=== PATIENT | female | born 1965 | race Caucasian/White ===

== ENCOUNTER 2016-12-18 09:35 | Emergency (ER) | payer SELFPAY ==
[~2016-12-18] VITALS: Ht 160 cm; Wt 65.8 kg
[~2016-12-18 09:35] MED LIST: ATENOLOL25 MG PO; CALCIUM + D3 E1 EACH PO; CLINDAMYCIN HC300 MG PO; CYCLOBENZAPRINE10 MG PO; DIAZEPAM5 MG PO; FISH OIL + D31 EACH PO; PEPCID20 MG PO; PREDNISONE50 MG PO; TRAMADOL HCL50 MG PO; ULTRAM50 MG PO; VITAMIN E100 UNI1 PO; ZOFRAN ODT4 MG PO
--- OUTSIDE RECORDS SUMMARY | 2016-12-18 09:51 | XMS ---
Demographics + + + | Address | [address] | | | [place] [address] | + + + | Preferred Language | Unknown | + + + | Marital Status | Unknown | + + + | Sabianism Affiliation | Unknown | + + + | Race | Unknown | + + + | Ethnic Group | Unknown | + + + Author + + + | Author | [facility] | + + + | Organization | [facility] | + + + | Address | [address] | | | [place] [address] | + + + | Phone | | + + + Care Team Providers + + + + | Care Fire Alarm Dispatcher Name | Role | Phone | + + + + Unavailable | Unavailable | + + + + PROBLEMS +---------+ + + +--------+ + + | Type | Condition | ICD9-CM | [id number] | Onset | Condition | SNOMED | | | | Code | Code | Dates | Status | Code | +---------+ + + +--------+ + + | Problem | Hypertensi | 401.9 | | | Active | 17245912 | | | on | | | | | | +---------+ + + +--------+ + + | Problem | Sciatica | M54.32 | | | Active | 18834858 | | | of left | | | | | | | | side | | | | | | +---------+ + + +--------+ + + | Problem | History of | Z86.79 | | | Active | [id number] | | | irregular | | | | | | | | heartbeat | | | | | | +---------+ + + +--------+ + + | Problem | Alcohol | F10.10 | | | Active | 82617338 | | | abuse | | | | | | +---------+ + + +--------+ + + | Problem | Degenerati | M15.9 | | | Active | 177364580 | | | ve joint | | | | | | | | disease | | | | | | | | involving | | | | | | | | multiple | | | | | | | | joints | | | | | | +---------+ + + +--------+ + + | Problem | Irregular | I49.9 | | | Active | 099862498 | | | cardiac | | | | | | | | rhythm | | | | | | +---------+ + + +--------+ + + | Problem | Unspecifie | | S93.602D | | Active | | | | d sprain | | | | | | | | of left | | | | | | | | foot, | | | | | | | | subsequent | | | | | | | | encounter | | | | | | +---------+ + + +--------+ + + | Problem | Primary | M15.0 | | | Active | 883767249 | | | osteoarthr | | | | | | | | itis | | | | | | | | involving | | | | | | | | multiple | | | | | | | | joints | | | | | | +---------+ + + +--------+ + + | Problem | Anxiety | | F41.9 | | Active | 53605021 | +---------+ + + +--------+ + + | Problem | Sciatica, | | M54.31 | | Active | 06308894 | | | right side | | | | | | +---------+ + + +--------+ + + ALLERGIES Unknown Allergies SOCIAL HISTORY No smoking Hx information available PLAN OF CARE VITAL SIGNS MEDICATIONS Unknown Medications RESULTS No Results PROCEDURES No Known procedures IMMUNIZATIONS No Known Immunizations"
--- OUTSIDE RECORDS SUMMARY | 2016-12-18 09:51 | XMS ---
Demographics + + + | Address | [address] | | | [place] [address] | + + + | Preferred Language | Unknown | + + + | Marital Status | Unknown | + + + | Buddhist Affiliation | Unknown | + + + | Race | Unknown | + + + | Ethnic Group | Unknown | + + + Author + + + | Author | [facility] | + + + | Organization | [facility] | + + + | Address | [address] | | | [place] [address] | + + + | Phone | | + + + Care Team Providers + + + + | Care Ornamental Plaster Sticker Name | Role | Phone | + + + + Unavailable | Unavailable | + + + + PROBLEMS +---------+ + + +--------+ + + | Type | Condition | ICD9-CM | [id number] | Onset | Condition | SNOMED | | | | Code | Code | Dates | Status | Code | +---------+ + + +--------+ + + | Problem | Primary | M15.0 | | | Active | [id number] | | | osteoarthr | | | | | | | | itis | | | | | | | | involving | | | | | | | | multiple | | | | | | | | joints | | | | | | +---------+ + + +--------+ + + | Problem | Sciatica, | | M54.31 | | Active | 63693124 | | | right side | | [...] | F10.10 | | | Active | 87534031 | | | abuse | | | | | | +---------+ + + +--------+ + + | Problem | Hypertensi | 401.9 | | | Active | 84311166 | | | on | | | | | | +---------+ + + +--------+ + + | Problem | History of | Z86.79 | | | Active | 970395437 | | | irregular | | | | | | | | heartbeat | | | | | | +---------+ + + +--------+ + + | Problem | Sciatica | M54.32 | | | Active | 64912589 | | | of left | | | | | | | | side | | | | | | +---------+ + + +--------+ + + | Problem | Injury of | S13.4XXA | | | Active | 989716271 | | | neck, | | | | | | | | whiplash | | | | | | +---------+ + + +--------+ + + | Problem | Retrolisth | M43.10 | | | Active | 056635713 | | | esis | | | | | | +---------+ + + +--------+ + + | Problem | Irregular | I49.9 | | | Active | 918653306 | | | cardiac | | | | | | | | rhythm | | | | | | +---------+ + + +--------+ + + | Problem | Anxiety | | F41.9 | | Active | 41277416 | +---------+ + + +--------+ + + | Problem | Right | | M25.511 | | Active | 784167812 | | | shoulder | | | | | | | | pain | | | | | | +---------+ + + +--------+ + + | Problem | Degenerati | M15.9 | | | Active | 047502326 | | | ve joint | | | | | | | | disease | | | | | | | | involving | | | | | | | | multiple | | | | | | | | joints | | | | | | +---------+ + + +--------+ + + ALLERGIES + + + + +--------+ | Substance | Reaction | Event Type | Date | Status | + + + + +--------+ | Tylenol | Unknown | Drug Allergy | Oct, | Active | + + + + +--------+ | Cipro | Unknown | Drug Allergy | Oct, | Active | + + + + +--------+ SOCIAL HISTORY No smoking Hx information available PLAN OF CARE + +---------+ | Activity | Details | + +---------+ +---+ | | +---+ + + + | Follow Up | prn Reason:null | + + + VITAL SIGNS + + + + | Height | 63 in | 2016-10-17 | + + + + | Weight | 159.8 lbs | 2016-10-17 | + + + + | BMI | 28.30 kg/m2 | 2016-10-17 | + + + + | Temperature | 98.2 degrees Fahrenheit | 2016-10-17 | + + + + | Heart Rate | 92 /min | 2016-10-17 | + + + + | Blood pressure systolic | 129 mm Hg | 2016-10-17 | + + + + | Blood pressure diastolic | 77 mm Hg | 2016-10-17 | + + + + MEDICATIONS + + + + + + + +--------+ | Medicati | Instruct | Dosage | Frequenc | Start | End Date | Duration | Status | | on | ions | | y | Date | | | | + + + + + + + +--------+ | Toradol | orally | as | | 20 Taco, | 11 Taco, | 5 day(s) | Active | | 10 mg | tid prn | directed | | 2015 | 2016 | | | + + + + + + + +--------+ | Vitamin | Orally | 1 tablet | 24h | | | 30 | Active | | D 1000 | Once a | | | | | day(s) | | | UNIT | day | | | | | | | + + + + + + + +--------+ RESULTS No Results PROCEDURES + + + + + | Procedure | Date Ordered | Related Diagnosis | Body Site | + + + + + | INJ KETOROLAC | October 17, 2016 | | | | TROMETHAMINE 15 MG | | | | + + + + + | INJECTION | October 17, 2016 | | | | INTRAMUSCULAR OR | | | | | SUBCUTANEOUS | | | | + + + + + | Est Level IV | October 17, 2016 | | | | Extended | | | | + + + + + IMMUNIZATIONS + + + + + | Vaccine | Route | Administration Date | Status | + + + + + | Ketorolac 30mg | IM Intramuscular | October 17, 2016 | Administered | + + + + +"
--- OUTSIDE RECORDS SUMMARY | 2016-12-18 09:51 | XMS ---
Demographics + + + | Address | [address] | | | [place] [address] | + + + | Preferred Language | Unknown | + + + | Marital Status | Unknown | + + + | Restoration Affiliation | Unknown | + + + | Race | Unknown | + + + | Ethnic Group | Unknown | + + + Author + + + | Author | [facility] | + + + | Organization | [facility] | + + + | Address | [address] | | | [place] [address] | + + + | Phone | | + + + Care Team Providers + + + + | Care Tile Machine Operator Name | Role | Phone | + + + + Unavailable | Unavailable | + + + + PROBLEMS +---------+ + + +--------+ + + | Type | Condition | ICD9-CM | [id number] | Onset | Condition | SNOMED | | | | Code | Code | Dates | Status | Code | +---------+ + + +--------+ + + | Problem | Hypertensi | 401.9 | | | Active | 40729948 | | | on | | | | | | +---------+ + + +--------+ + + | Problem | Sciatica | M54.32 | | | Active | 82207793 | | | of left | | | | | | | | side | | | | | | +---------+ + + +--------+ + + | Problem | History of | Z86.79 | | | Active | 019851629 | | | irregular | | | | | | | | heartbeat | | | | | | +---------+ + + +--------+ + + | Problem | Alcohol | F10.10 | | | Active | 65017263 | | | abuse | | | | | | +---------+ + + +--------+ + + | Problem | Degenerati | M15.9 | | | Active | 358184242 | | | ve joint | | [...] | I49.9 | | | Active | 593256081 | | | cardiac | | | [...] | M15.0 | | | Active | 157472389 | | | osteoarthr | | | | | | | | itis | | | | | | | | involving | | | | | | | | multiple | | | | | | | | joints | | | | | | +---------+ + + +--------+ + + | Problem | Anxiety | | F41.9 | | Active | 02971193 | +---------+ + + +--------+ + + | Problem | Sciatica, | | M54.31 | | Active | 37154043 | | | right side | | [...] + | Height | 63 in | 2016-10-14 | + + + + | Weight | 160.6 lbs | 2016-10-14 | + + + + | BMI | 28.45 kg/m2 | 2016-10-14 | + + + + | Temperature | 98.3 degrees Fahrenheit | 2016-10-14 | + + + + | Heart Rate | 81 /min | 2016-10-14 | + + + + | Blood pressure systolic | 127 mm Hg | 2016-10-14 | + + + + | Blood pressure diastolic | 74 mm Hg | 2016-10-14 | + + + + MEDICATIONS + + + + +--------+ + +--------+ | Medicati | Instruct | Dosage | Frequenc | Start | End Date | Duration | Status | | on | ions | | y | Date | | | | + + + + +--------+ + +--------+ | Vitamin | Orally | 1 tablet | 24h | | | 30 | Active | | D 1000 | Once a | | | | | day(s) | | | UNIT | day | | | | | | | + + + + +--------+ + +--------+ RESULTS No Results PROCEDURES + + + + + | Procedure | Date Ordered | Related Diagnosis | Body Site | + + + + + | Est Level III | October 14, 2016 | | | | Intermediate | | | | + + + + + | DSCHRG MED/CURRENT | October 14, 2016 | | | | MED MERGE | | | | + + + + + | DOC MEDS VERIFIED | October 14, 2016 | | | | W/PT OR RE | | | | + + + + + IMMUNIZATIONS No Known Immunizations"
== END 2016-12-18 11:19 | disposition home or self-care (01) ==
LOC: ED 09:35
DX: M79.662 Pain in left lower leg (principal); Z90.710 Acquired absence of both cervix and uterus; Z85.3 Personal history of malignant neoplasm of breast; F17.200 Nicotine dependence, unspecified, uncomplicated; Z90.49 Acquired absence of other specified parts of digestive tract; Z88.5 Allergy status to narcotic agent; Z88.2 Allergy status to sulfonamides; Z88.8 Allergy status to other drugs, medicaments and biological substances; Z88.1 Allergy status to other antibiotic agents
CPT/HCPCS: 85025; 85610; 93971; 99284

== ENCOUNTER 2017-04-15 00:46 | Emergency (ER) | payer SELFPAY ==
[~2017-04-15] VITALS: Ht 160 cm; Wt 65.8 kg
== END 2017-04-15 02:38 | disposition home or self-care (01) ==
LOC: ED 00:46
DX: S06.0X9A Concussion with loss of consciousness of unspecified duration, initial encounter (principal); F10.129 Alcohol abuse with intoxication, unspecified; Z88.6 Allergy status to analgesic agent; Z88.1 Allergy status to other antibiotic agents; Z88.2 Allergy status to sulfonamides; Z88.5 Allergy status to narcotic agent; Z88.8 Allergy status to other drugs, medicaments and biological substances; Z90.710 Acquired absence of both cervix and uterus; Z90.49 Acquired absence of other specified parts of digestive tract; F17.200 Nicotine dependence, unspecified, uncomplicated; Z85.3 Personal history of malignant neoplasm of breast; W07.XXXA Fall from chair, initial encounter
CPT/HCPCS: 70450; 72125; 99284

== ENCOUNTER → 2017-09-09 | Emergency (ER) | payer OTHER ==
[~2017-09-09] VITALS: Ht 160 cm; Wt 65.8 kg
[~2017-09-09] MED LIST changes: +ADVIL LIQUI-GE200 MG PO; +NAPROXEN500 MG PO
--- OUTSIDE RECORDS SUMMARY | ~2017-09-09 | XMS ---
Demographics + + + | Address | [address] | | | [place] [address] | + + + | Preferred Language | Unknown | + + + | Marital Status | Unknown | + + + | Religion Affiliation | Unknown | + + + | Race | Unknown | + + + | Ethnic Group | Unknown | + + + Author + + + | Author | [facility] | + + + | Organization | [facility] | + + + | Address | [address] | | | [place] [address] | + + + | Phone | | + + + Care Team Providers + + + + | Care Aviation Technical Systems Specialist Name | Role | Phone | + + + + Unavailable | Unavailable | + + + + PROBLEMS +---------+ + + +--------+ + + | Type | Condition | ICD9-CM | [id number] | Onset | Condition | SNOMED | | | | Code | Code | Dates | Status | Code | +---------+ + + +--------+ + + | Problem | Primary | M15.0 | | | Active | [id number] | | | osteoarthr | | | | | | | | itis | | | | | | | | involving | | | | | | | | multiple | | | | | | | | joints | | | | | | +---------+ + + +--------+ + + | Problem | Sciatica, | | M54.31 | | Active | 86106029 | | | right side | | [...] | F10.10 | | | Active | 50557687 | | | abuse | | | | | | +---------+ + + +--------+ + + | Problem | Hypertensi | 401.9 | | | Active | 05463247 | | | on | | | | | | +---------+ + + +--------+ + + | Problem | History of | Z86.79 | | | Active | 602984774 | | | irregular | | | | | | | | heartbeat | | | | | | +---------+ + + +--------+ + + | Problem | Sciatica | M54.32 | | | Active | 97530395 | | | of left | | | | | | | | side | | | | | | +---------+ + + +--------+ + + | Problem | Injury of | S13.4XXA | | | Active | 633867081 | | | neck, | | | | | | | | whiplash | | | | | | +---------+ + + +--------+ + + | Problem | Retrolisth | M43.10 | | | Active | 540994913 | | | esis | | | | | | +---------+ + + +--------+ + + | Problem | Irregular | I49.9 | | | Active | 866534152 | | | cardiac | | | | | | | | rhythm | | | | | | +---------+ + + +--------+ + + | Problem | Anxiety | | F41.9 | | Active | 79577172 | +---------+ + + +--------+ + + | Problem | Right | | M25.511 | | Active | 214505865 | | | shoulder | | | | | | | | pain | | | | | | +---------+ + + +--------+ + + | Problem | Degenerati | M15.9 | | | Active | 538889888 | | | ve joint | | [...]
--- OUTSIDE RECORDS SUMMARY | ~2017-09-09 | XMS | Clinical Summary ---
Demographics + + + | Address | [address] | | | [place] [address] | + + + | Home Phone | | + + + | Preferred Language | Unknown | + + + | Marital Status | | + + + | Mormonism Affiliation | Unknown | + + + | Race | Unknown | + + + | Ethnic Group | Unknown | + + + Author + + + | Author | [facility] | | | and [place] | + + + | Organization | [facility] | | | and [facility] | + + + | Address | Unknown | + + + | Phone | Unavailable | + + + Support + + + + + | Name | Relationship | Address | Phone | + + + + + | Audie Dang | ECON | [address] | | | | | [place] | | | | | [address] | | + + + + + | Keisha Leonard | ECON | [address] | | | | | [place] | | | | | [address] | | + + + + + Care Team Providers + +------+ + | Care Site Monitor Name | Role | Phone | + +------+ + | No, Unknownpcp | PP | Unavailable | + +------+ + Allergies Not on File Current Medications Not on file Active Problems Not on file Social History + +-------+ +--------+------+ | Tobacco Use | Types | Packs/Day | Years | Date | | | | | Used | | + +-------+ +--------+------+ | Never Assessed | | | | | + +-------+ +--------+------+ + + + | Sex Assigned at | Date Recorded | | | | + + + | Not on file | | + + + Plan of Treatment + + + + + | Health Maintenance | Due Date | Last Done | Comments | + + + + + | Vaccine: | | | | | Dtap/Tdap/Td (1 - | 6 | | | | Tdap) | | | | + + + + + | CERVICAL CANCER | | | | | SCREENING (PAP EVERY | 8 | | | | 3 YEARS 21-64 ) | | | | + + + + + | BREAST CANCER | | | | | SCREENING (MAMM Q2 | 7 | | | | YEARS 50-74) | | | | + + + + + | COLON CANCER | | | | | SCREENING | 7 | | | | (COLONOSCOPY EVERY | | | | | 10 YEARS 50-75) | | | | + + + + + | Vaccine: Influenza | | | | | (Season Ended) | 8 | | | + + + + + Results Not on filefrom Last 3 Months"
--- OUTSIDE RECORDS SUMMARY | ~2017-09-09 | XMS ---
Demographics + + + | Address | [address] | | | [place] [address] | + + + | Preferred Language | Unknown | + + + | Marital Status | Unknown | + + + | Uatsdin Affiliation | Unknown | + + + | Race | Unknown | + + + | Ethnic Group | Unknown | + + + Author + + + | Author | [facility] | + + + | Organization | [facility] | + + + | Address | [address] | | | [place] [address] | + + + | Phone | | + + + Care Team Providers + + + + | Care Micro Computer Specialist Name | Role | Phone | + + + + Unavailable | Unavailable | + + + + PROBLEMS +---------+ + + +--------+ + + | Type | Condition | ICD9-CM | [id number] | Onset | Condition | SNOMED | | | | Code | Code | Dates | Status | Code | +---------+ + + +--------+ + + | Problem | History of | Z86.79 | | | Active | 156360855 | | | irregular | | | | | | | | heartbeat | | | | | | +---------+ + + +--------+ + + | Problem | Sciatica, | | M54.31 | | Active | 41448907 | | | right side | | | | | | +---------+ + + +--------+ + + | Problem | Primary | M15.0 | | | Active | 420355446 | | | osteoarthr | | | | | | | | itis | | | | | | | | involving | | | | | | | | multiple | | | | | | | | joints | | | | | | +---------+ + + +--------+ + + | Problem | Hypertensi | | I10 | | Active | 08830953 | | | on | | | | | | +---------+ + + +--------+ + + | Problem | Alcohol | F10.10 | | | Active | 05315780 | | | abuse | | | | | | +---------+ + + +--------+ + + | Problem | PVD | I73.9 | | | Active | 156813253 | | | (periphera | | | | | | | | l vascular | | | | | | | | disease) | | | | | | +---------+ + + +--------+ + + | 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 | | | Active | 08884194 | | | vein of | | | | | | | | leg | | | | | | +---------+ + + +--------+ + + | Problem | Irregular | I49.9 | | | Active | 615023203 | | | cardiac | | | | | | | | rhythm | | | | | | +---------+ + + +--------+ + + | Problem | Anxiety | | F41.9 | | Active | 63740420 | +---------+ + + +--------+ + + | Problem | Shoulder | | M25.519 | | Active | 22602871 | | | pain | | | | | | +---------+ + + +--------+ + + | Problem | Degenerati | M15.9 | | | Active | 370987445 | | | ve joint | | [...] Tylenol | Unknown | Drug Allergy | Dec, | Active | + + + + +--------+ | Cipro | Unknown | Drug Allergy | Dec, | Active | + + + + +--------+ SOCIAL HISTORY No smoking Hx information available PLAN OF CARE + +---------+ | Activity | Details | + +---------+ +---+ | | +---+ + + + | Follow Up | 4 Weeks, prn Reason:null | + + + VITAL SIGNS + + + + | Height | 63 in | 2017-01-03 | + + + + | Weight | 161.4 lbs | 2017-01-03 | + + + + | BMI | 28.59 kg/m2 | 2017-01-03 | + + + + | Temperature | 98.7 degrees Fahrenheit | 2017-01-03 | + + + + | Heart Rate | 93 /min | 2017-01-03 | + + + + | Blood pressure systolic | 145 mm Hg | 2017-01-03 | + + + + | Blood pressure diastolic | 99 mm Hg | 2017-01-03 | + + + + MEDICATIONS + [...] + + + + + +--------+ | BuSpar 5 | Orally | 1 tablet | 8h | 23 Dec, | | 30 | Active | | MG | Three | | | 2017 | | day(s) | | | | times a | | | | | | | | | day | | | | | | | + + + + + + + +--------+ | Vitamin | | | | | | | Active | | E | | | | | | | | + + + + + + + +--------+ | Calcium | | | | | | | Active | + + + + + + + +--------+ | Advil | | | | | | | Active | + + + + + + + +--------+ | Toradol | orally | as | | Dec, | 28 Dec, | 5 day(s) | Active | | 10 mg | p.r.n. | directed | | 2016 | 2016 | | | + + + + + + + +--------+ RESULTS No Results PROCEDURES + + + + + | Procedure | Date Ordered | Related Diagnosis | Body Site | + + + + + | Est Level III | Jan 03, 2017 | | | | Intermediate | | | | + + + + + IMMUNIZATIONS No Known Immunizations"
--- OUTSIDE RECORDS SUMMARY | ~2017-09-09 | XMS | Clinical Summary ---
Demographics + + + | Address | [address] | | | [place] [address] | + + + | Home Phone | | + + + | Preferred Language | Unknown | + + + | Marital Status | | + + + | Orthodoxy Affiliation | Unknown | + + + | Race | Unknown | + + + | Ethnic Group | Unknown | + + + Author + + + | Author | [facility] | | | and [place] | + + + | Organization | [facility] | | | and [place] | + + + | Address | Unknown | + + + | Phone | Unavailable | + + + Support + + + + + | Name | Relationship | Address | Phone | + + + + + | Audie Dang | ECON | [address] | | | | | [place] | | | | | [address] | | + + + + + | Keisha Leonard | ECON | [address] | | | | | [place] | | | | | [address] | | + + + + + Care Team Providers + +------+ + | Care Audio Visual Design Engineer Name | Role | Phone | + [...]
== END | disposition home or self-care (01) ==
LOC: ED 22:41
DX: M79.605 Pain in left leg (principal); M79.604 Pain in right leg; F17.200 Nicotine dependence, unspecified, uncomplicated; Z88.6 Allergy status to analgesic agent; Z88.2 Allergy status to sulfonamides; Z88.1 Allergy status to other antibiotic agents; Z88.5 Allergy status to narcotic agent; Z88.8 Allergy status to other drugs, medicaments and biological substances
CPT/HCPCS: 99283

== ENCOUNTER 2018-01-13 20:55 | Emergency (ER) | payer OTHER ==
[~2018-01-13] VITALS: Ht 160 cm; Wt 65.8 kg
== END 2018-01-13 22:24 | disposition home or self-care (01) ==
LOC: ED 20:55
PROC: 0T9B70Z Drainage of Bladder with Drainage Device, Via Natural or Artificial Opening (ICD-10-PCS; principal; 2018-01-13)
DX: R55 Syncope and collapse (principal); F17.200 Nicotine dependence, unspecified, uncomplicated; Z88.6 Allergy status to analgesic agent; Z88.2 Allergy status to sulfonamides; Z88.8 Allergy status to other drugs, medicaments and biological substances
CPT/HCPCS: 51701; 80053; 80176; 81001; 84443; 85025; 99285; G0480; J7030

== ENCOUNTER 2019-07-05 00:11 | Emergency (ER) | payer OTHER ==
[~2019-07-05] VITALS: Ht 160 cm; Wt 65.8 kg
--- OUTSIDE RECORDS SUMMARY | 2019-07-05 00:14 | XMS ---
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 Niya has no Care Guidelines for this patient. Care History Medical/Surgical 09/11/2017 [facility] contacted patient about insurance coverage. Patient stated she would work with [employer] in regards to health coverage and would be in contact with her [employer]. - [facility] expressed the importance of ED utilization verses being seen by the PCP. Care Recommendation: Patient requires education on the scope and purpose of the ED as an acute care provider not a Primary Care Provider and should not be utilized for chronic conditions. If patient returns to ED please contact Community Health WorkerYahaira at [phone]. These are guidelines and the provider should exercise clinical judgment when providing care. E.D. VISIT COUNT (12 MO.) 1 [facility] TOTAL 1 NOTE: Visits indicate total known visits. ED/UCC VISIT TRACKING (12 MO.) 07/05/2019 00:12 [facility] [place] TYPE: Emergency COMPLAINT: - SYNCOPE INPATIENT VISIT TRACKING (12 MO.) No inpatient visits to display in this time frame [id number]
--- NOTE | 2019-07-05 06:13 | EKG ---
[facility] [address] [facility] [place], [place] [address] Signed Normal sinus rhythm Normal ECG No previous ECGs available Confirmed by WADE SOLARES MD ([id number]) on 07/05/2019 6:13:51 AM Electronically Signed By: WADE SOLARES MD 07/05/19612 PATIENT NAME: LENNIE ROLLINS RAGHAV Electrocardiogram DATE OF : 67 PHYSICIAN: WADE SOLARES MD REPORT #: [id number] REPORT IS CONFIDENTIAL AND NOT TO BE RELEASED WITHOUT AUTHORIZATION
== END 2019-07-05 04:26 | disposition home or self-care (01) ==
LOC: ED 00:11
DX: F10.129 Alcohol abuse with intoxication, unspecified (principal); Y90.7 Blood alcohol level of 200-239 mg/100 ml; Z85.3 Personal history of malignant neoplasm of breast; Z88.6 Allergy status to analgesic agent; Z88.1 Allergy status to other antibiotic agents; Z88.8 Allergy status to other drugs, medicaments and biological substances; Z88.2 Allergy status to sulfonamides; Z79.899 Other long term (current) drug therapy; Z88.5 Allergy status to narcotic agent
CPT/HCPCS: 51701; 70450; 72125; 80053; 81001; 84484; 84703; 85025; 85610; 85730; 93005; 93010; 99284-25; G0480; J2310

== ENCOUNTER 2021-12-27 18:15 | Emergency (ER) | payer SELFPAY ==
[~2021-12-27] VITALS: Ht 160 cm; Wt 64.9 kg
--- OUTSIDE RECORDS SUMMARY | 2021-12-27 18:18 | XMS ---
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 Niya has no Care Guidelines for this patient. Care History Medical/Surgical 07/07/2019 [facility] Patient used ED appropriately.\T\nbsp; Follow up visit scheduled for [address] Dickerson 09/11/2017 [facility] - [facility] contacted patient about insurance coverage. Patient stated she would work with [employer] in regards to health coverage and would [...] ED please contact Community Health WorkerYahaira at [phone]. These are guidelines and the provider should exercise clinical judgment when providing care. E.D. V[facility] (12 MO.) [facility] T[facility] 2 NOTE: Visits indicate total known visits. ED/UCC VISIT TRACKING (12 MO.) 12/27/2021 18:[address] [facility] [place] TYPE: Emergency COMPLAINT: - [facility] DIAGNOSES: - Anesthesia of skin - Numbness - Lf side tingling sensation INPATIENT VISIT TRACKING (12 MO.) No inpatient visits to display in this time frame [id number]
[2021-12-27] MEDS ORDERED: METFORMIN HCL500 M1 PO (20:27)
[2021-12-27] MEDS ORDERED: DICLOFENAC SODI75 MG PO (20:28)
[2021-12-27] MEDS ORDERED: LIPITOR40 MG PO (20:28)
[2021-12-27] MEDS ORDERED: AMITRIPTYLINE H50 MG PO (20:28)
[2021-12-27] MEDS ORDERED: NOVOLIN 70100 UNIT/1 SUB-Q (20:29)
[2021-12-27] MEDS ORDERED: PREDNISONE20 MG PO (23:00)
== END 2021-12-27 23:20 | disposition home or self-care (01) ==
LOC: ED 18:15
DX: M06.9 Rheumatoid arthritis, unspecified (principal); Z88.2 Allergy status to sulfonamides; Z88.6 Allergy status to analgesic agent; Z88.1 Allergy status to other antibiotic agents; Z88.8 Allergy status to other drugs, medicaments and biological substances; Z79.84 Long term (current) use of oral hypoglycemic drugs; Z79.899 Other long term (current) drug therapy; Z79.4 Long term (current) use of insulin
CPT/HCPCS: 36415; 73110; 73130; 80048; 84550; 85025; 85651; 86140; 96374; 99283-25; J1100

== ENCOUNTER 2022-03-14 08:36 | Emergency (ER) | payer OTHER ==
[~2022-03-14] VITALS: Ht 160 cm; Wt 64.9 kg
[~2022-03-14 08:36] MED LIST changes: +AMITRIPTYLINE H50 MG PO; +DICLOFENAC SODI75 MG PO; +LIPITOR40 MG PO; +METFORMIN HCL500 M1 PO; +NOVOLIN 70100 UNIT/1 SUB-Q; +PREDNISONE20 MG PO
--- OUTSIDE RECORDS SUMMARY | 2022-03-14 08:44 | XMS ---
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 Niya has no Care Guidelines for this patient. Care History Medical/Surgical 07/07/2019 [facility] Patient used ED appropriately.\T\nbsp; Follow up visit scheduled for [address] Dickerson 09/11/2017 [facility] - [facility] contacted patient about insurance coverage. Patient stated she would work with [email or web address] in regards to health coverage and would [...] ED please contact Community Health WorkerYahaira at [phone]. These are guidelines and the provider should exercise clinical judgment when providing care. E.D. VISIT COUNT (12 MO.) 1 [facility] TOTAL 3 NOTE: Visits indicate total known visits. ED/UCC VISIT TRACKING (12 MO.) 03/14/2022 08:36 [facility] [place] TYPE: Emergency COMPLAINT: - HANDS, ARMS, SHOULDERS, R FOOT PAIN 12/27/2021 18:16 [facility] [place] TYPE: Emergency COMPLAINT: - WRIST PAIN/NON INJURY DIAGNOSES: - Other specified soft tissue disorders - Allergy status to other antibiotic agents - Allergy status to analgesic agent - Other senior care (current) drug therapy - parts counterman (current) use of insulin - Allergy status to sulfonamides - Rheumatoid arthritis, unspecified - parts counterman (current) use of oral hypoglycemic drugs - Allergy status to other drugs, medicaments and biological substances 11/20/2021 03:15 [facility] [place] TYPE: Emergency DIAGNOSES: - Anesthesia of skin - Numbness - Lf side tingling sensation INPATIENT VISIT TRACKING (12 MO.) No inpatient visits to display in this time frame [id number]
[2022-03-14] MEDS ORDERED: PREDNISONE20 MG PO (09:06)
== END 2022-03-14 09:53 | disposition home or self-care (01) ==
LOC: ED 08:36
DX: M06.9 Rheumatoid arthritis, unspecified (principal); Z85.3 Personal history of malignant neoplasm of breast; Z88.6 Allergy status to analgesic agent; Z88.2 Allergy status to sulfonamides; Z88.1 Allergy status to other antibiotic agents; Z88.8 Allergy status to other drugs, medicaments and biological substances; Z88.5 Allergy status to narcotic agent; Z79.899 Other long term (current) drug therapy; Z79.52 Long term (current) use of systemic steroids; Z79.84 Long term (current) use of oral hypoglycemic drugs; Z79.4 Long term (current) use of insulin
CPT/HCPCS: 96372; 99283; J1885; J7512

== ENCOUNTER 2022-05-17 15:13 | Emergency (ER) | payer SELFPAY ==
[~2022-05-17] VITALS: Ht 160 cm; Wt 65.8 kg
--- OUTSIDE RECORDS SUMMARY | 2022-05-17 15:21 | XMS ---
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 Niya has no Care Guidelines for this patient. Care History Medical/Surgical 07/07/2019 [facility] Patient used ED appropriately.\T\nbsp; Follow up visit scheduled for [address] Dickerson 09/11/2017 [facility] - [facility] contacted patient about insurance coverage. Patient stated she would work with [employer] in regards to health coverage and would [...] ED please contact Community Health WorkerYahaira at [phone]. These are guidelines and the provider should exercise clinical judgment when providing care. E.D. VISIT COUNT (12 MO.) 1 [facility]. Mary Jon 3 [facility]. TOTAL 4 NOTE: Visits indicate total known visits. ED/UCC VISIT TRACKING (12 MO.) 05/17/2022 15:14 [facility] TYPE: Emergency COMPLAINT: - LT LEG SWELLING 03/14/2022 08:36 [facility] TYPE: Emergency COMPLAINT: - HANDS, ARMS, SHOULDERS, R FOOT PAIN DIAGNOSES: - Personal history of malignant neoplasm of breast - tank terminal gauger (current) use of systemic steroids - tank terminal gauger (current) use of oral hypoglycemic drugs - Allergy status to narcotic agent - Allergy status to other antibiotic agents - USP (current) use of insulin - Allergy status to sulfonamides - Rheumatoid arthritis, unspecified - Allergy status to other drugs, medicaments and biological substances - Allergy status to analgesic agent - Other snf (current) drug therapy 12/27/2021 18:16 [facility] TYPE: Emergency COMPLAINT: - WRIST PAIN/NON INJURY DIAGNOSES: - Allergy status to analgesic agent - Other ferry terminal agent (current) drug therapy - tank terminal gauger (current) use of insulin - Allergy status to sulfonamides - Rheumatoid arthritis, unspecified - tank terminal gauger (current) use of oral hypoglycemic drugs - Allergy status to other drugs, medicaments and biological substances - Other specified soft tissue disorders - Allergy status to other antibiotic agents [facility] DIAGNOSES: - Anesthesia of skin - Numbness - Lf side tingling sensation INPATIENT VISIT TRACKING (12 MO.) No inpatient visits to display in this time frame [email or web address]
[2022-05-17] MEDS ORDERED: FOLIC ACID1 MG PO (15:35)
[2022-05-17] MEDS ORDERED: METHOTREXATE2.5 MG PO (15:35)
== END 2022-05-17 18:44 | disposition home or self-care (01) ==
LOC: ED 15:13
DX: M25.562 Pain in left knee (principal); I73.9 Peripheral vascular disease, unspecified; Z88.2 Allergy status to sulfonamides; Z88.1 Allergy status to other antibiotic agents; Z88.5 Allergy status to narcotic agent; Z88.6 Allergy status to analgesic agent; Z79.899 Other long term (current) drug therapy; Z79.4 Long term (current) use of insulin
CPT/HCPCS: 93971; 99283-25

== ENCOUNTER 2024-11-21 06:44 | Emergency (ER) | payer MEDICARE ==
[~2024-11-21] VITALS: Ht 160 cm; Wt 64.0 kg
[~2024-11-21 06:44] MED LIST changes: +FOLIC ACID1 MG PO; +HUMIRA40 MG/0.1 SUB-Q; +METHOTREXATE2.5 MG PO
[2024-11-21 08:19] VITALS: BP 137/97
== END 2024-11-21 08:18 | disposition home or self-care (01) ==
LOC: ED 06:44
DX: M79.645 Pain in left finger(s) (principal); M25.521 Pain in right elbow; J44.9 Chronic obstructive pulmonary disease, unspecified; E10.51 Type 1 diabetes mellitus with diabetic peripheral angiopathy without gangrene; Z91.81 History of falling; Z88.2 Allergy status to sulfonamides; Z88.1 Allergy status to other antibiotic agents; Z88.5 Allergy status to narcotic agent; Z88.6 Allergy status to analgesic agent; Z88.8 Allergy status to other drugs, medicaments and biological substances; Z79.84 Long term (current) use of oral hypoglycemic drugs; Z79.4 Long term (current) use of insulin; Z79.899 Other long term (current) drug therapy
CPT/HCPCS: 73080; 73130; 99283

== ENCOUNTER 2025-01-16 17:49 | Emergency (ER) | payer OTHER, MEDICARE ==
[~2025-01-16] VITALS: Ht 160 cm; Wt 80.0 kg
[2025-01-16 19:00] VITALS: BP 145/98
== END 2025-01-16 19:53 | disposition home or self-care (01) ==
LOC: ED 17:49
DX: S62.617A Displaced fracture of proximal phalanx of left little finger, initial encounter for closed fracture (principal); E10.9 Type 1 diabetes mellitus without complications; J44.9 Chronic obstructive pulmonary disease, unspecified; W01.0XXA Fall on same level from slipping, tripping and stumbling without subsequent striking against object, initial encounter; Z88.2 Allergy status to sulfonamides; Z88.1 Allergy status to other antibiotic agents; Z88.5 Allergy status to narcotic agent; Z88.8 Allergy status to other drugs, medicaments and biological substances; Z79.84 Long term (current) use of oral hypoglycemic drugs; Z79.4 Long term (current) use of insulin
CPT/HCPCS: 73140; 99283